=== PATIENT | male | born 1945 | race Caucasian/White ===

== ENCOUNTER → 2017-03-13 | Outpatient (CLI) | payer MEDICARE ==
[2017-03-13 12:28] LABS: Blood Urea Nitrogen 12 mg/dL (9-20); Non-African American GFR(MDRD) >60 (>60 ml/min/1.73 sqM)
--- NOTE | 2017-03-13 13:11 | CT ---
EXAMINATION TYPE: CT chest w con DATE OF EXAM: 03/13/2017 COMPARISON: Correlation CT urogram 07/23/2016 HISTORY: 72-year-old male pulmonary nodule TECHNIQUE: Contiguous axial scanning of the chest after the administration of 100 mL of Omnipaque 300 . Coronal/sagittal reconstructions performed. CT DLP: 290.4mGycm. Automatic exposure control utilized for a dose reduction. FINDINGS: The heart is normal size without pericardial effusion. Coronary vessel calcifications are present and are a marker for coronary artery disease. Aorta is normal caliber with conventional arch vessel branching anatomy. Mild bilateral gynecomastia. No thoracic lymphadenopathy by CT size criteria. Evaluation of the lungs shows no consolidation or pleural effusion. A small 4 mm peripheral left lower lobe pulmonary nodule axial image 45 is unchanged from 07/23/2016. Otherwise, no suspicious pulmonary nodules are seen. Multiple hypodense lesions in the liver as seen previously. Bones: Anterior endplate spondylosis mid to lower thoracic spine. No osseous destructive process. IMPRESSION: 1. Stable 4 mm left lower lobe pulmonary nodule for nearly 8 months. A benign etiology is suggested. 2. No acute pulmonary process.
== END | disposition home or self-care (01) ==
LOC: RADCTMAIN 11:51
PROVIDERS: ATTEND Family Medicine
DX: R91.1 Solitary pulmonary nodule (principal)
CPT/HCPCS: 82565; 84520; 71260; 36415; Q9967

== ENCOUNTER → 2022-10-31 | Outpatient (CLI) | payer MEDICARE ==
[2022-10-31 11:15] LABS: African American GFR (CKD) >90 (>60 ml/min/1.73 sqM); Blood Urea Nitrogen 15 mg/dL (9-20); Non-African American GFR(CKD) 89 (>60 ml/min/1.73 sqM)
--- NOTE | 2022-10-31 12:16 | CT ---
EXAMINATION TYPE: CT chest w con DATE OF EXAM: 10/31/2022 COMPARISON: 03/05/2017 HISTORY: 77-year-old male hx of lung nodule TECHNIQUE: Contiguous axial scanning of the chest after the administration of 70 mL of Isovue 300. C oronal/sagittal reconstructions performed. CT DLP: 275.4mGycm. Automatic exposure control utilized for a dose reduction. FINDINGS: The heart is normal size without pericardial effusion. Scattered three-vessel coronary calcifications are unremarkable for coronary disease. Mild ectasia ascending aorta 3.7 cm. Conventional arch vessel branching anatomy. No thoracic lymphadenopathy by CT size criteria. Minimal biapical pleural parenchymal scarring is unchanged. Tiny 3 mm posterior right upper lobe pulmonary nodule, axial image 20 4 mm peripheral left lower lobe pulmonary nodule, axial image 44. 3 mm pulmonary nodule left lower lung along the major fissure, unchanged. Visualized upper abdomen again shows a few underlying hepatic cysts measuring up to 1.7 cm. Degenerative change at the sternoclavicular joint. Mild degenerative disc disease mid to lower thorac ic spine with mild to moderate anterior spondylosis. IMPRESSION: 1. A few 3 to 4 mm pulmonary nodules remain unchanged from 2017 compatible with a benign etiology. No new pulmonary nodules seen. 2. CAD with 3 vessel coronary artery calcifications.
== END | disposition home or self-care (01) ==
LOC: RADCTMAIN 10:14
PROVIDERS: ATTEND Family Medicine
DX: I25.10 Atherosclerotic heart disease of native coronary artery without angina pectoris (principal); R91.8 Other nonspecific abnormal finding of lung field
CPT/HCPCS: 82565; 84520; 71260; 36415; Q9967